=== PATIENT | female | born 1960 | race Asian ===

== ENCOUNTER 2020-08-02 22:42 | Emergency (ER) | payer OTHER ==
[~2020-08-02] VITALS: Ht 162.6 cm; Wt 65.8 kg
--- NOTE | 2020-08-02 23:16 | NUR ---
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
--- NOTE | 2020-08-02 23:35 | NUR ---
Pt daughter called demanding to talk to her mother. Elementary Librarian attempted to explain that we dont' have phones in the room. Also she isn't allowed out of the room d/t her reasoning here. Daughter con't to interrupt information writer while talking wanting to know what is going on. Elementary Librarian attempted to explain that the doctor was in the room now and that we don't have any updates at this time. Daughter then hung up on the information writer. Charge aware.
[2020-08-03 00:02] VITALS: BP 136/70
== END 2020-08-03 00:12 | disposition home or self-care (01) ==
LOC: ED 23:00
DX: J12.9 Viral pneumonia, unspecified (principal); B34.9 Viral infection, unspecified
CPT/HCPCS: 99281